=== PATIENT | female | born 1970 | race Caucasian/White ===

== ENCOUNTER 2025-04-11 09:08 | Outpatient (REF) | payer MEDICAID, SELFPAY ==
--- OUTSIDE RECORDS SUMMARY | 2019-06-19 11:56 | XMS_ITS | Continuity of Care Document ---
Author Organization [facility] Address [address] [place] [address] Phone Care Team Providers Care Emergency Dispatch Operator Name Role Phone Ayla Horton Unavailable Unavaila ble Allergies, Adverse Reactions, Alerts Substance Reaction Status Criticality adhesive tape Active No Information HYDROMORPHONE HCL chest pain Active No Informa tion Medications Medication Instructions Dosage Effective Dates (start - stop) Status Comments amlodipine 10 mg tablet take 1 tablet by oral route every day 10 MG - Active amitriptyline 25 mg tablet take 1 tablet by oral route every day at bedtime 25 MG - Active Aspir-81 mg tablet,delayed release take 1 tablet by oral route every day - Active atorvastatin 40 mg tablet take 1 tablet by oral route every day 40 MG - Active clonidine HCl 0.1 mg tablet take 1 tablet by oral route 2 times every day 0.1 MG - Active divalproex ER 500 mg tablet,extended release 24 hr take 1 tablet by oral route every day 500 MG - Active Drizalma Sprinkle 60 mg capsule,delayed release take 1 capsule by oral route every day 60 MG - Active Fish Oil 300 mg-500 mg capsule - Active nitroglycerin 0.[address] 1 tablet by sublingual route at the first sign of an attack; no more than 3 tabs are recommended within a 15 minute period. as needed 0.3 MG - Active omeprazole 40 mg capsule,delayed release take 1 capsule by oral route 2 times every day before a meal 40 MG - Active ropinirole 0.5 mg tablet take 1 tablet by oral route 3 times every day 0.5 MG - Active rosuvastatin 40 mg tablet take 1 tablet by oral route every day 40 MG - Active Premarin 0.625 mg/gram vaginal cream insert (0.5G) by vaginal route 2 times every week 0.5 G - Active Accu-Chek Combo System kit please provide glucometer, test strips and lancets for TID BS checks x 3 months as per formulary - Active FreeStyle Test Strips take by Subcutaneous route test once daily Not Available - Active Humalog KwikPen 100 unit/mL Sub-Q Pen inject by subcutaneous route as per insulin sliding scale protocol - Active before meals and at bed time; small/30 carbs=2units; medium/45 carbs=4units; average/60 carbs=5 units; larger/75 carbs=7units BD Ultra-Fine Olga Pen Watson 32 x 5/32 apply to pen ends and inject insulin as directed once daily for lantus and ac and hs for humalog pens - Active Basaglar KwikPen U-100 Insulin 100 unit/mL (3 mL) subcutaneous inject by subcutaneous route as per insulin protocol 0.00 - Active metformin 1,000 mg tablet take 1 tablet by oral route 2 times every day with morning and evening meals 1000 MG - Active lisinopril 40 mg tablet take 1 tablet by oral route every day 40 MG - Active Problems Condition Type Effective Dates (start - stop) Clini alex Status Comments No Known Problems Procedures Procedure Date PREV VISIT, EST, AGE 40-64 Intraoral-complete Series (bw) 20 Comp Oral Eval New/estab Patient 2019 Oral Hygiene Instruction PREV VISIT, EST, AGE 40-64 OFFICE/OUTPATIENT VISIT, NEW GLYCOSYLATED HEMOGLOBIN TEST OFFICE/OUTPATIENT VISIT, EST OFFICE/OUTPATIENT VISIT, EST OFFICE/OUTPATIENT VISIT, EST OFFICE/OUTPATIENT VISIT, EST ROUTINE VENIPUNCTURE OFFICE/OUTPATIENT VISIT, EST OFFICE/OUTPATIENT VISIT, EST OFFICE/OUTPATIENT VISIT, EST OFFICE/OUTPATIENT VISIT, EST ROUTINE VENIPUNCTURE OFFICE/OUTPATIENT VISIT, EST OFFICE/OUTPATIENT VISIT, EST OFFICE/OUTPATIENT VISIT, EST OFFICE/OUTPATIENT VISIT, EST OFFICE/OUTPATIENT VISIT, EST MEASURE BLOOD OXYGEN LEVEL OFFICE/OUTPATIENT VISIT, EST EST OFFICE VISIT LEVEL 4 EST OFFICE VISIT LEVEL 4 EST OFFICE VISIT LEVEL 4 ROUTINE VENIPUNCTURE OFFICE/OUTPATIENT VISIT, EST ROUTINE VENIPUNCTURE EST OFFICE VISIT LEVEL 4 EST OFFICE VISIT LEVEL 4 EST OFFICE VISIT LEVEL 4 EST OFFICE VISIT LEVEL 4 MEASURE BLOOD OXYGEN LEVEL FLU VACCINE, 3 YRS & >, IM EST OFFICE VISIT LEVEL 4 EST OFFICE VISIT LEVEL 4 EST OFFICE VISIT LEVEL 3 Advance Directives Directive Yes / No Effective Date File Name No Information Encounters Encounter Description Practice Location Reason(s) For Visit Diagnoses Date Provider Providers Copied on Encounter [facility], [address] [place] [address], [id number] , tel:[phone] [facility] No Information 0 Ke [facility] Ayla. [address] [place] [address], [id number], [place]. tel:[phone] PREV VISIT, EST, AGE 40-64 [facility], [address] [place] [address], [id number] , tel:[phone] [facility] annual exam (chief complaint) Encntr for community health program coordinator exam (general) (routine) w/o abn findingsScreening mammogram, encounter forOther problems related to lifestyleBody mass index (BMI) 50.0-59.9, adultAtrophy of vaginaHirsutism 0 [facility] Ayla. [address], [place], [id number], [place]. tel:[phone] [facility], [address], [place], [id number] , [place] tel: [phone] Dental Clinic dental new (chief complaint) Encounter for screening for dental disorder 0 Myron Chang. [address], [place], [id number], [place]. tel:[phone] PREV VISIT, EST, AGE 40-64 [facility], [address] [place] [address], [id number] , [place] tel: [phone] [facility] annual exam (chief complaint) Encntr for community health program coordinator exam (general) (routine) w/o abn findingsEncounter for screening mammogram for malignant tumor of breast- STD screen- STD liefstyle codeMastitis 7 [facility] Ayla. [address], [place], [id number], [place]. tel:[phone] OFFICE/OUTPA TIENT VISIT, NEW [facility], [address] [place] [address], [id number] , [place] tel: [phone] [facility] est care (chief complaint)sp ot on R arm (chief complaint) Pain in right lower legChest pain, unspecifiedGeneral ized anxiety disorderMajor depressive disorder, single episode, unspecifiedEssenti al (primary) hypertensionMixed hyperlipidemiaMorb id (severe) obesity due to excess caloriesDiverticul osis of intestine without abscess with bleedingKeratosisB catrachita mass index (BMI) 50-59.9 , adultFibromyalgiaT ype 2 diabetes mellitus with hyperglycemia Antoine Lynn. [address], [place], [id number], [place]. tel:[phone] OFFICE/OUTPA TIENT VISIT, EST [facility], [address], [place], [id number] , [place] tel:[phone] [facility] chest pain (chief complaint) Chest pain, unspecifiedPilonid al cystHypertension, Benign Apr- 0-201 4 Hemmer Bee. [address], [place], [id number], [place]. OFFICE/OUTPA TIENT VISIT, [facility], [address] [place] [address], [id number] , [place] tel: [phone] [facility] follow up on lab / diagnostic test (chief complaint) Diabetes Mellitus, Adult Onset, UncontrolledHypert ension, BenignObesity, MorbidMixed HyperlipidemiaLumb agoHemorrhoids 9-201 4 Hemmer Bee. [address], [place], [id number], [place]. OFFICE/OUTPA TIENT VISIT, [facility], [address] [place] [address], [id number] , [place] tel: [phone] [facility] back pain (chief complaint) Diabetes Mellitus, Adult Onset, UncontrolledHypert ension, BenignLumbagoMixed HyperlipidemiaObes ity, Morbid Jun- 6-201 4 Hemmer Bee. [address], [place], [id number], [place]. OFFICE/OUTPA TIENT VISIT, [facility], [address] [place] [address], [id number] , [place] tel: [phone] [facility] hemorrhoids (chief complaint) Rectal bleedingHemorrhoid s 4-201 3 Hemmer Bee. [address], [place], [id number], [place]. [facility], [address] [place] [address], [id number] , [place] tel: [phone] [facility] No Information 5-201 3 Hemmer Bee. [address] [place] [address], [id number], [place]. OFFICE/OUTPA TIENT VISIT, [facility], [address] [place] [address], [id number] , [place] tel: [phone] [facility] follow up on lab / diagnostic test (chief complaint) Hypertension, BenignVitamin D deficiencyObesity, MorbidDepression with anxietyMixed HyperlipidemiaDiab etes Mellitus, Adult Onset, Uncontrolled - 3 Hemmer Bee. [address], [place], [id number], [place]. OFFICE/OUTPA TIENT VISIT, [facility], [address] [place] [address], [id number] , [place] tel:[phone] [facility] depression (chief complaint)di abetes (chief complaint) Degeneration of lumbar or lumbosacral intervertebral discDepressionObes ity, MorbidBreast abscessDiabetes Mellitus, Adult Onset, UncontrolledHypert ension, BenignHypersomnia, unspecifiedMixed Hyperlipidemia 3 Hemmer Bee. [address], [place], [id number], [place]. [facility], [address] [place] [address], [id number] , [place] tel:[phone] [facility] Sleep Study (chief complaint)[facility] Records (chief complaint) Hypersomnia, unspecifiedObesity , Morbid 0 3 Visci DO Root. [address], [place], [id number], [place]. tel:[phone] OFFICE/OUTPA TIENT VISIT, [facility], [address] [place] [address], [id number] , [place] tel:[phone] [facility] lower back pain (chief complaint) Degenerative disc disease, lumbarPain in thoracic spineDepressionSui cidal ideation 2 3 Hemmer Bee. [address], [place], [id number], [place]. OFFICE/OUTPA TIENT VISIT, [facility], [address] [place] [address], [id number] , [place] tel:[phone] [facility] back pain (chief complaint) Thoracic spine pain Jan- 5 3 Hemmer Bee. [address], [place], [id number], [place]. OFFICE/OUTPA TIENT VISIT, [facility], [address] [place] [address], [id number] , [place] tel:[phone] [facility] back pain (chief complaint)kn ee pain (chief complaint) Hypertension, BenignMixed HyperlipidemiaDiab etes mellitus without mention of complication,Dizzi nessVitamin D deficiencyAbscess of skinLumbagoPain in joint involving lower leg 3 Sean Gamboa. [address], [place], [id number], [place]. OFFICE/OUTPA TIENT VISIT, [facility], [address], [place], [id number] , [place] tel:[phone] [facility] cyst-lanced and packed (chief complaint) Benign essential hypertensionSebace ous cystMorbid obesityDiabetes mellitus without mention of complication, type II or unspecified type, uncontrolled 1 See Cohen. [address] [place] [address], [id number]. tel:[phone] EST OFFICE VISIT LEVEL 4 [facility], [address] [place] [address], [id number] , [place] [phone] [facility] diabetes (reveiw lab work) (chief complaint)an xiety (chief complaint)hy pertension (chief complaint)wo und (chief complaint) Diabetes mellitus without mention of complication, type II or unspecified type, uncontrolledBenign essential hypertensionMixed hyperlipidemiaGene ralized anxiety disorderBenign essential hypertensionGenera lized anxiety disorderCellulitis and abscess of trunkOther abnormal blood chemistry 1 See Cohen. [address] [place], [address]. tel:[phone] [facility], [address] [place] [address], [id number] , [place] tel:[phone] [facility] labs 5-1011 (chief complaint) ProteinuriaProtein uria 1 See Cohen. [address] [place] [address], [id number]. tel:[phone] EST OFFICE VISIT LEVEL 4 [facility], [address], [place], [id number] , [place] tel: [phone] [facility] sore throat (chief complaint) Diabetes mellitus without mention of complication, type II or unspecified type, uncontrolledBenign essential hypertensionAbdomi nal pain, generalizedAcute pharyngitisMixed hyperlipidemiaAbdo grace pain, generalized 1 See Cohen. [address] [place], [address]. tel:[phone] EST OFFICE VISIT LEVEL 4 [facility], [address] [place] [address], [id number] , [place] tel: [phone] [facility] back pain (chief complaint)DM /HTN (chief complaint) Diabetes mellitus without mention of complication, type II or unspecified type, uncontrolledMyalgi a and myositis, unspecifiedLumbago SciaticaPain in joint involving lower legLumbagoSciatica Pain in joint involving lower legMyalgia and myositis, unspecified 1 See Cohen. [address] [place] [address], [id number]. tel:[phone] EST OFFICE VISIT LEVEL 4 [facility], [address] [place] [address], [id number] , [place] tel:[phone] [facility] cut on heel not healing (chief complaint)re fill on diabetes supplies (chief complaint)co ld symptoms (chief complaint) Diabetes mellitus without mention of complication, type II or unspecified type, uncontrolledBenign essential hypertensionCellul itis and abscess of other specified sitesAcute sinusitis, unspecified 1 See Cohne. [address] [place] [address], [id number]. tel:[phone] EST OFFICE VISIT LEVEL 4 [facility], [address] [place] [address], [id number] , [place] tel: [phone] [facility] abdominal discomfort (chief complaint) Unspecified chest painAbdominal pain, generalizedBenign essential hypertensionAbdomi nal pain, generalizedDiabete s mellitus without mention of complication, type II or unspecified type, uncontrolledUnspec ified chest pain 0 See Cohen. [address] [place], [address]. tel:[phone] EST OFFICE VISIT LEVEL 4 [facility], [address], [place], [id number] , [place] tel:[phone] [facility] lump on leg (chief complaint)hali mp on back (chief complaint) Syncope and collapseDiabetes mellitus without mention of complication, type II or unspecified type, uncontrolledGenera lized anxiety disorderMajor depressive affective disorder, recurrent episode, unspecified degreeMorbid obesityBenign essential hypertensionViral warts, unspecifiedSebaceo us cystSebaceous cystViral warts, unspecifiedDiabete s mellitus without mention of complication, type II or unspecified type, uncontrolledMorbid obesityBenign essential hypertensionSebace ous cyst 0 See Cohen. [address] [place], [address]. tel:[phone] [facility], [address] [place] [address], [id number] , [place] [phone] [facility] No Information 0 Sheeba Villagran. [address], [place], [id number], [place]. tel:[phone] EST OFFICE VISIT LEVEL 4 [facility], [address], [place], [id number] , [place] tel:[phone] [facility] fainting spells (chief complaint) Syncope and collapseDiabetes mellitus without mention of complication, type II or unspecified type, uncontrolledMorbid obesity 0 Fortino Osuna. [address] [place] [address], [id number], [place]. tel:[phone] EST OFFICE VISIT LEVEL 4 [facility], [address] [place] [address], [id number] , [place] [phone] [facility] UTI (chief complaint)di zziness (chief complaint)op en draining sores (chief complaint) Diabetes mellitus without mention of complication, type II or unspecified type, uncontrolledSyncop e and collapseMorbid obesity 0 Sugeybeckie PEDERSEN-Jillian Thao. [address] [place], [address], [place]. tel:[phone] EST OFFICE VISIT LEVEL 3 [facility], [address], [place], [id number] , tel:[phone] [facility] PAP test (chief complaint) Routine gynecological examinationMorbid obesityCandidiasis of vulva and vagina 0 Stibeckie PEDERSEN-C Thao. [address] [place], [address], [place]. tel:[phone] Family History Family Member Type Diagnosis Age At Onset Mother Problem (finding) stroke Mother Problem (finding) hypertension Father Problem (finding) Obesity Brother Problem (finding) attention deficit hyper activity disorder Mother Problem (finding) depression Brother Problem (finding) alcoholism Mother Problem (finding) osteoarthritis Father Problem (finding) alzheimer's disease Brother Problem (finding) Multiple myeloma Mother Problem (finding) diabetes melli tus in first degree relative Father Problem (finding) hypertension Father Problem (finding) diabetes melli tus in first degree relative Father Problem (finding) raised blood lipids Mother Problem (finding) raised blood lipids Payers Payer name Insurance type Covered democrat ID Authoriza tion(s) [place] [employer] 190 [id number] Medicaid [facility] [id number] Social History Type Description Quantity Date Captured Comments Alcohol Use Details Unknown Caffeine Use Details Unknown Tobacco Use Status No Information Smoking Status No Information Sex Female Sexual Orientation Straight or heterosexual Gender Identity Female Chief Complaint And Reason For Visit No Information Reason For Referral Reason For Referral No Information Plan Of Treatment Date Type Action Status Goal Breast exam. Due on 020 due Goal Pneumococcal vaccine. Due on due Goal Hemoglobin A1C. Due on due Goal ECG. Due on due Goal Dental exam. Due on due Goal Diabetes screening. Due on due Goal Foot exam. Due on 0 due Goal Urine Microalbumin. Due on due Goal Tdap. Due on due Goal H&P. Due on due Goal Influenza vaccine. Due on due Goal Depression screening. Due on due Goal Lipid panel. Due on due Goal READING COACH exam. Due on due Goal Dilated eye exam. Due on May due Goal Dietary management education , guidance, and counseling completed Goal Depression screening. Due on due Goal Breast exam. Due on due Goal Hemoglobin A1C. Due on due Goal Dilated eye exam. Due on May due Goal H&P. Due on due Goal Influenza vaccine. Due on due Goal Urinalysis due Goal Pneumococcal vaccine. Due on due Goal ECG. Due on due Goal READING COACH exam. Due on due Goal Lipid panel. Due on due Goal Tdap. Due on due Goal Foot exam. Due on 0 due Goal Dental exam. Due on due Goal Urine Microalbumin. Due on due Goal Diabetes screening. Due on due Goal Pneumococcal vaccine. Due on due Goal Lipid panel. Due on 015 due Goal ECG. Due on due Goal Foot exam. Due on due Goal Influenza vaccine. Due on due Goal Breast exam. Due on 011 due Goal Dilated eye exam. Due on Dec due Goal Urine Microalbumin. Due on due Goal Dental exam. Due on 017 due Goal Urinalysis. Due on 14 due Goal H&P. Due on due Goal Tdap. Due on due Goal Foot exam. Due on 2 due Goal Pneumococcal vaccine. Due on due Goal Urinalysis. Due on 14 due Goal READING COACH exam. Due on due Goal ECG. Due on due Goal Breast exam. Due on 011 due Goal Influenza vaccine. Due on due Goal Lipid panel. Due on 015 due Goal Dental exam. Due on 017 due Goal H&P. Due on due Goal Dilated eye exam. Due on Nov due Goal Urine Microalbumin. Due on due Goal Tdap. Due on due Referral Ordered: Gastroenterology (related to Diverticulosis of intestine without abscess with bleeding) [id number] Ordered: General Surgery. [id number] Ordered: Psychiatry. [id number] Ordered: Physical Therapy (related to Thoracic spine pain) [id number] Referred To: Physical Therapy Ordered: Referral: Physical Therapy. Evaluate and treat. [id number] Ordered: CULTURE THROAT Nephrology. [id number] Ordered: ref form given to client who states will schedule [place] [facility] [place] to Myalgia and myositis, unspecified) [id number] Ordered: Physical Therapy. ordered History Of Present Illness Encounter Date Complaint History Of Prese nt Illness annual exam Currently pregna nt: no. : 3. Parity: Term: 3. Livin. Patient is not contemplating . The patient states she uses hysterectomy for control. Her menses is absent. Negative for dysmenorrhea and menorrhagia. Negative for: breast discharge, breast lump(s), breast pain and breast self exam.Postmenopausal: Age: 35, Type: Partial hystectomy. Negative for Hormone replacement therapy. Menopausal symptoms negative for: insomnia, night sweats and vaginal dryness. Menopausal symptoms positive for: hot flashes. The patient does not use tobacco. She does drink alcohol. Additional information: Patient is here for annual exam. has a long history of PCOS and hirsutism. [facility] 2 weeks. Has not had work up for abnormal hair growth for a long time. May have had it when she was younger. C/O stabbing pain in outer left breast, but no lump noted. C/O stabbing pain in vaginal area. Is sexually active.. dental new dental new, esta b dental care annual exam Currently pregna nt: no. : 3. Parity: Term: 3. Livin. The patient states she uses hysterectomy for control. Her menses is absent.Postmenopausal: Age: 35, Type: Partial hystectomy. Negative for Hormone replacement therapy. Tobacco cessation has been discussed. She does drink alcohol. Additional information: Patient is here for annual exam. States she believes she has a bug bite that turned into an infection. SHe was seen in the ER 2 days ago and was given Bactrim, but redness has continued to spread. States the area is tender and warm to touch. Has a mammogram scheduled for this Wednesday. States she has had a hysterectomy, but has her ovaries. Denies any other READING COACH problems.. est care Patient here to establish care, she was seeing Dr. Gloria Hernandez. States she just doesn't like her anymore. She is also seeing Dr. Cerrato for her mental health, she thinks she has an appt next month. Patient states she needs an overall well check, she has not been taking care of herself. She does not remember to take her medications on a regular basis. States she has a lot of health issues. 13.2-Byron QUACH spot on R arm Patient has a sp ot on her R arm she would like looked at. -Byron QUACH Functional Status Date Functional Assessmen t No Information Instructions Date Instruction Additional Infor kenrick Discussed hirsutism in detail and patient has appt in 2 weeks with PCP. Encouraged her to have testosterone levels drawn and evaluated. Related to Hirsutism Discussed atrophic v agina and probable cause of vaginal discomfort especially with IC. Rx for premarin vaginal ream sent to pharmacy. Related to Atrophy of vagina Encouraged monthly B SE. Recommend calcium 1000mg QD. Encouraged good dietary intake and exercise. Laboratory specimens sent to lab. Patient to call in 2 weeks if desires results.currently on medications for insulin resistance and diabetes. Will follow up with CP for hirsutism Related to Encntr for community health program coordinator exam (general) (routine) w/o abn findings Giving encouragement to exercise Related to Body mass index (BMI) 50.0-59.9, adult Dietary management e ducation, guidance, and counseling Related to Body mass index (BMI) 50.0-59.9, adult Discussed erythema o f right breast and marked the line of infection. ENcouraged patient to report back to ER as she may need IV antibiotic. THere is no lump or abscess under the erythema. site is warm to touch and tender. Encouraged to continue Bactrim as Rx. Will obtain ER report Related to Mastitis Encouraged monthly B SE. Recommend calcium 1000mg QD. Encouraged good dietary intake and exercise. Laboratory specimens sent to lab. Patient to call in 2 weeks if desires results. Related to Encntr for community health program coordinator exam (general) (routine) w/o abn findings Cervical cultures se nt to lab. Patient to call in 1 week for results Related to - STD screen Go to ER if symptoms persist or worsen Call if symptoms persist Walking program recommended Review medications Review medication side effects Order labs/studies Call if symptoms persist Walking program recommended Order consults Prescribe medications Renew medications Review medications Review medication side effects Order labs/studies Go to ER if symptoms persist or worsen Walking program recommended Review medication side effects Order labs/studies Go to ER if symptoms persist or worsen Call if symptoms persist Prescribe medications Review medications Call if symptoms persist Walking program recommended Order consults Prescribe medications Review medications Review medication side effects Order labs/studies Go to ER if symptoms persist or worsen Prescribe medications Review medications Review medication side effects Go to ER if symptoms persist or worsen Call if symptoms persist Walking program recommended Prescribe medications Review medications Review medication side effects Order labs/studies Go to ER if symptoms persist or worsen Call if symptoms persist Walking program recommended Order consults Prescribe medications Renew medications Review medications Review medication side effects Go to ER if symptoms persist or worsen Call if symptoms persist Order labs/studies Walking program recommended Assessments Type Assessment Date No Information Goals Health Concern Goal Type Priority Status Date Diabetes Self Management: Patient needs education to manage diabetes. Patient will state factors necessary to manage diabetes. Patient Goal Continued Patient Care Teams Name Effective Dates (start - stop) Status Members No Information
--- OUTSIDE RECORDS SUMMARY | 2024-02-15 06:00 | XMS_ITS ---
Author Organization [facility] Address [address] [place] [address] Care Team Providers Care Decorator Hand Name Role Phone Joe Mcgrath Primary Care Provider [phone] Taniya Flores Unavailable [phone] REASON FOR VISIT FILLINGS Social History Sex Assigned At : Social History Observation Description Sex Assigned At Female Encounters Encounter Location Date Provider Diagnosis [facility] [address] [place] [address] 02/15/2024 Taniya Flores Plan Of Treatment No Information Progress Notes * WILLIAM LIN LDOB:[birth year] (54 yo F)Acc No.[id number]:02/15/2024 Patient:?WILLIAM LIN :?Taniya FloresDOB:1970???Age:53 Y???Sex: FemaleDate:02/15/2024hone:[phone]:[address], [id number]:Joe Mcgrath Subjective: * Chief Complaints: * F ILLINGS * Electronic signature of Taniya Flores DMD on 04/11/2025 at 09:17 AM ESTSign off status: Pending * Provider: Shruti Flores Date: 1 Generated for Printing/Faxing/eTransmitting on:?04/11/2025 09:17 AM EST
--- OUTSIDE RECORDS SUMMARY | 2024-08-08 06:00 | XMS_ITS ---
Author Organization [facility] Address [address] [place] [address] Care Team Providers Care Landmen Name Role Phone Joe Mcgrath Primary Care Provider REASON FOR VISIT 1 month f/u Social History Sex Assigned At : Social History Observation Description Sex Assigned At Female Encounters Encounter Location Date Provider Diagnosis [facility] [address] [place] [address] 08/08/2024 Joe Mcgrath Plan Of Treatment No Information Progress Notes * WILLIAM LIN LDOB:[birth year] (54 yo F)Acc No.[id number]:08/08/2024 Progress Notes Patient: WILLIAM CALLEJAS Provider:?Joe McgrathDOB:1970???Age:54 Y???Sex:FemaleDate:08/08/2024Phone:[phone]:[address] [id number] Subjective: * Chief Complaints: * 1 month f/u Billing Information: * Procedure Codes: * Electronic signature of Joe Mcgrath DO on 04/11/2025 at 09:17 AM ESTSign off status: Pending * Appointment Provider: Shruti Mcgrath Date: 0 08/08/2024 Generated for Printing/Faxing/eTransmitting on:?04/11/2025 09:17 AM EST
--- OUTSIDE RECORDS SUMMARY | 2024-10-02 06:30 | XMS_ITS ---
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 Name Role Phone Joe Mcgrath Primary Care Provider Nilsa Benton [phone] REASON FOR VISIT 3 month f/u Social History Sex Assigned At : Social History Observation Description Sex Assigned At Female Encounters Encounter Location Date Provider Diagnosis [facility] [address] [place] [address] 10/02/2024 Nilsa Benton Plan Of Treatment No Information Progress Notes * WILLIAM LIN LDOB:[birth year] (54 yo F)Acc No.[id number]:10/02/2024 Behavioral [facility] Patient: Avel JOHNSON WILLIAM [place]lecillo :?Nilsa BentonDOB:1970???Age:54 Y???Sex:Female Date:10/02/2024Phone:[phone]:[address] [id number]:Joe Mcgrath Subjective: * Chief Complaints: * 3 month f/u * Electronic signature of JU Méndez on 04/11/2025 at 09:16 AM ESTSign off status: Pending * Provider: Jillian Benton Date: 0 10/02/2024 Generated for Printing/Faxing/eTransmitting on:?04/11/2025 09:16 AM EST
--- OUTSIDE RECORDS SUMMARY | 2025-04-11 09:17 | XMS_ITS | Patient Health Record ---
Author Organization [facility] Address [address] [place] [address] Care Team Providers Care Blender / Cook Name Role Phone Joe Mcgrath Primary Care Provider [phone] Nilsa Benton Unavailable [phone] Gemma Martinez Unavailable [phone] Butch Ireland Unavailable [phone] Allergies Allergen (clinical drug ingredient) Drug/Non Drug Allergy documented on EMR Reaction Allergy Type Onset Date Status hydromorphone Dilaudid vomiting Drug Allergy ActiveAdhesiverashAllergyActivemorphineMorphineanaphylaxisDrug AllergyActive Results Component Value Reference Range Flag Notes Thyroid Stim Hormone w/Rflx Reviewed date:06/15/2024 04:48:12 PM Interpretation: Performing Lab: Notes/Report: Reason for Exam Palpitations;Subclinical hypothyroidism Thyroid Stim Hormone w/Rflx 2.30 0.45-5.33 u[iU]/mL N Lipid Panel Reviewed date:06/15/2024 04:48:12 PM Interpretation: Performing Lab: Notes/Report: Reason for Exam Palpitations;Subclinical kntghcqbqdnysyNrxgxjeppot184111-878 mg/dLN Chol less than 200 mg/dl low risk Chol 201-239 mg/dl borderline risk Chol 240 mg/dl and greater high risk HDL Qsspeyxnufp0566-27 mg/dLN HDL CHOL ATP-III CLASSIFICATION Cardiovascular Risk HDL > or equal to 60 mg/dL LOW HDL < 40 mg/dL HIGH Triglyceride w/Vbwonm9619-604 mg/dLN TRIG ATP III CLASSIFICATION TRIG less than 150 mg/dL Normal TRIG 150-199 mg/dL Borderline high TRIG 200-500 mg/dL High TRIG greater than 500 mg/dL Very high Standard traceable to the Center for Disease Conrtrol and Prevention (CDC) test method. LDL Cholesterol,Cjtutlzwri010-506 mg/dLN LDL ATP III CLASSIFICATION LDL less than 100 mg/dL Optimal LDL 100-129 mg/dL Near or above optimal LDL 130-159 mg/dL Borderline high LDL 160-189 mg/dL High LDL greater than 189 mg/dL Very high VLDL HXVGTHZTTFP73Fzng/HDL Ratio3.2<5.0Comprehensive Metabolic Panel Reviewed date:06/15/2024 04:48:12 PM Interpretation: Performing Lab:, [facility], [address] [place] [address] Notes/Report: Reason for Exam Palpitations;Subclinical ksrzkfqgzugxlkArtmmey72269-922 mg/dLH Random Glucose Reference Range is dependent on time and content of last meal. Glucose of more than 200 mg/dL in a nonstressed, ambulatory subject supports the diagnosis of Diabetes Mellitus. ADA recommended reference range Blood Urea Zlkhsrev989-35 mg/dLNCreatinine0.910.60-1.20 mg/eQLTqjxgt322153-454 mmol/LNPotassium4.23.5-5.1 mmol/OHTxegpwpt78699-745 mmol/LHCarbon Yuokipi16.7 21.0-31.0 mmol/LNCalcium9.48.6-10.3 mg/dLNTotal Protein6.96.4-8.9 g/dLNAlbumin Level4.43.5-5.7 g/dLNGlobulin2.5Albumin/Globulin Ratio1.8Bilirubin,Total0.40.3- 1.0 mg/dLNAspartate Amino Fimmjlkndll2500-52 U/LNAlanine Jzwuudaemqrelufd187-05 U/LNAlkaline Smisfqikhdl0920-663 U/LNEstimated GFR>60.0Anion Gap12.56.0-15.0 meq/LNNM belen perf SPECT rest & str Reviewed date:07/14/2024 03:47:11 PM Interpretation: Performing Lab: Notes/Report: [facility] Main [place] [address] [place] [address] Nuclear Medicine Report Signed Patient: Sharmaine Barkley MR#: [id number] : 1970 Acct:[id number] Age/Sex: 54 / F ADM Date: 07/12/24 Loc: Room: Type: [facility] Attending Dr: Joe Lawson DO Copies to: MD Joe Clayton DO Ordering Provider: Joe Lawson DO Date of Service: 07/12/24 NM/NM belen perf SPECT rest str: aerotherscleric heart disease of the coronary artery NUCLEAR MYOCARDIAL PERFUSION DATE OF PROCEDURE: 07/13/24 PROCEDURE: The patient received a stress dose of Lexiscan and was then injected with 29.5 millicuries of Technetium 99M Sestamibi. For rest images the patient was injected with 29.7 millicuries of Technetium 99M Sestamibi. FINDINGS: The raw cine images were reviewed. The post stress and rest perfusion images were reviewed as well as the computer quantification. There is a fixed inferior wall defect due to increased gut uptake. No ischemia On the gated portion of the study, there was uniform thickening with an overall ejection fraction calculated at 63%. TID score was within normal limits. CONCLUSION: 1. There is a fixed inferior wall defect due to increased gut uptake. No ischemia 2. Left ventricular function was preserved. Impression dictated by: Pam Carcamo M.D.07/13/2024 3:25 PM Dictation Location: [place] [address] Transcribed By: [facility] 07/13/24 1525 Dictated By: Pam Carcamo MD 07/13/24 1520 Signed By: <Electronically signed by Pam Carcamo MD in OV> 07/13/24 1525 Reason For Referral No Information Medications Medication SIG (Take, Route, Frequency, Duration) Notes Start Date End Date Status Clopidogrel Bisulfate 75 MG Tablet Take 1 tablet by mouth once daily; Duration: 30 ActiveRosuvastatin Calcium 40 MG Tablet1 tablet Orally Once a day; Duration: 30 daysActiveJardiance 25 MG Tablet1 tablet Orally Once a dayActivemetFORMIN HCl 500 MG Tablet2 ttablet with a meal Orally twice dailyActiveHumaLOG KwikPen 100 UNIT/ML Solution Pen-injectoras directed Subcutaneous1:3 carb ratio. Takes 30 units total/day on averageActiveTresiba FlexTouch 100 UNIT/ML Solution Pen-bwcibwqg84 units Subcutaneous once a dayActiveOzempic (0.25 or 0.5 MG/DOSE) 2 MG/3ML Solution Pen-injectorSubcutaneous; Duration: 28 DaysActiveMagnesium Oxide 400 MG TabletTake 1 tablet by mouth once daily; Duration: 30ActiveAspirin 81 MG Capsule1 tablet Orally Once a day; Duration: 30 daysActivePotassium Chloride ER 20 MEQ Tablet Extended ReleaseTake 1 tablet by mouth once daily with food Orally Once a day; Duration: 90 daysActiveamLODIPine Besylate 10 MG Tablet Take 1 tablet by mouth once daily Orally Once a day; Duration: 30 daysActive hydroCHLOROthiazide 25 MG TabletTake 1 capsule by mouth once daily in the morning Orally Once a day; Duration: 30 daysActiveARIPiprazole 10 MG Tablet1 tablet Orally Once a dayActiveLisinopril 20 MG Tablet1 tablet Orally Once a day; Duration: 30 daysActiveDULoxetine HCl 60 MG Capsule Delayed Release Particles Take 1 capsule by mouth once dailyActiveGabapentin 300 MG CapsuleTake 1 capsule by mouth twice daily; Duration: 30Not-Taking/PRN Immunizations Vaccine Route Administration Date Status Comme nts Influenza 3+ PRIVATE IM Intramuscular 07/17/2021 Administe red MODERNAIM Wkixuxsfamdby20/20/2021dministered Covid vaccine (Moderna) #2 administered @ [facility] on 08/12/2020. Lot #:[id number] Exp:09/10/2020 MODERNAIM Kjxvuurbxgchz29/27/2021dministered Covid-19 vaccine (Moderna) #2 administered @ [facility]. Lot #:[id number] Exp:02/18/2021 MODERNAIM Zluemdicvccwm50/03/2022dministeredSHINGRIX VIAL KITIM Intramuscular 09/16/2021dminist[facility] [place] 2[place] #:[id number] EXP:10/08/2022 TETANUSIM Ygrmqvhtdddmm90/03/2022dministered Social History Tobacco Use: Social History Observation Description Date Details (start date - stop date) Never Smoker NA - NA Sex Assigned At : Social History Observation Description Sex Assigned At Female Social History Social DeterminantsSocial InfoQuestionAnswerNotesPRAPAREDate Completed/Updated: 06/01/2024What is your current housing situation?I have housingAre you worried about losing your housing?NoWhat is the highest level of school that you have finished?More than high schoolWhat is your current work situation?Unemployed and seeking workIn the past year, have you or any family members you live with been unable to get any of the following when it was really needed? Check all that applyI do not have problems meeting my needsHas lack of transportation kept you from medical appointments, meetings, work or from getting things needed for daily living?NoHow often do you see or talk to people that you care about and feel close to? (For example: talkingto friends on the phone, visiting friends or family, going to episcopalian or club meetings)More than 5 times a weekHow stressed are you? Stress is when someone feels tense, nervous, anxious, or cant sleep at night because their mind is troubledA little bitIn the past year have you spent more than 2 nights in a row in a intermediate, skilled nursing, jail center, orjuvenile correctional facility?NoAre you a refugee?NoWhat country are you from?[place]Do you feel physically and emotionally safe where you currently live?YesIn the past year, have you been afraid of your partner or ex-partner?NoPRAPARE Score:4GeneralSocial InfoQuestionAnswerNotesTransition of Care:ER/UC/hospital since last office visit?Yes, report on fileSpecialist seen since last office visit?NoSubstance abuse/mental health issues of patient/familyPatient -Denies Ability to understand healthcare/treatmentPatient:GoodSocial/Support Concerns: Patient:NoBehaviors affecting healthPoor/Risky Behaviors:Denies-Communication Barrier:Language Barrier?:NoDrug/Alcohol:Social InfoQuestionAnswerNotesAUDIT-C (Standard)Did you have a drink containing alcohol in the past year?NoPoints0 InterpretationNegativeTobacco Use:Social InfoQuestionAnswerNotesTobacco Control (Standard)Tobacco use:NonsmokerAdditional DetailsCategorySocial InfoOptions DetailsPsychosocial HistoryCultural/Ethniccluutter home dogs 6 ppl trailer crowded all have mental health admis lifestyle family dysfuntion anger xhilren out of homeStrengths/Weaknesses from another hometown pain in neck selfish needy 24 years has though of leaving would not end well son promise not to leave three children 23 schizofeffect 17 4.0 lives with stable family 20 daughter living at [place] round got her out of house emoitoanl abuse 23 his gf her daughter her son spouse pt not one person on disability but no of them working successfully continue cycle of homelessness, mental health, and 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 keep 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 working 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 at hovelstay Problems Problem Type SNOMED Code ICD Code Onset Dates Problem Status W/U Status Risk Notes Problem Type 2 diabetes mellitus with other specified complication (E11.69)Active confirmedProblemMorbid obesity (disorder) (205349426)Morbid (severe) obesity due to excess calories (E66.01)ActiveconfirmedProblemHyperlipidemia (15005401) Hyperlipidemia, unspecified (E78.5)ActiveconfirmedProblemHypomagnesemia (450322433)Hypomagnesemia (E83.42)ActiveconfirmedProblemSchizoaffective disorder, bipolar type (75590757)Schizoaffective Disorder, Bipolar type (F25.0) ActiveconfirmedProblemSchizoaffective disorder, depressive type (94603727) Schizoaffective Disorder, Depressive type (F25.1)ActiveconfirmedProblemChronic pain (74526242)Other chronic pain (G89.29)ActiveconfirmedProblemSciatica (25219424)Lumbago with sciatica, right side (M54.41)ActiveconfirmedProblem Sciatica (08819808)Lumbago with sciatica, left side (M54.42)Activeconfirmed ProblemFibromyalgia (865862299)Fibromyalgia (M79.7)ActiveconfirmedProblemAnxiety (21893593)Anxiety (F41.9)ActiveconfirmedProblemEssential hypertension (33790508)Essential hypertension (I10)ActiveconfirmedProblemMorbid obesity (572368942)Morbid obesity (E66.01)ActiveconfirmedProblemDiabetes mellitus (66390125)Diabetes mellitus (E11.9)ActiveconfirmedProblemNeuropathy (551818565) Neuropathy (G62.9)ActiveconfirmedProblemRestless legs syndrome (36527882) Restless leg syndrome (G25.81)ActiveconfirmedProblemBody mass index 40+ - severely obese (758852154)BMI 45.0-49.9, adult (Z68.42)ActiveconfirmedProblem Carpal tunnel syndrome of right wrist (298962931785282)Carpal tunnel syndrome of right wrist (G56.01)ActiveconfirmedProblemDiabetic neuropathy (939608571) Diabetic neuropathy (E11.40)ActiveconfirmedProblemPrimary hypertension (66938002)Primary hypertension (I10)ActiveconfirmedProblemGastroesophageal reflux disease without esophagitis (964680068)Gastroesophageal reflux disease without esophagitis (K21.9)ActiveconfirmedProblemRecurrent falls (210609762) Frequent falls (R29.6)ActiveconfirmedProblemInsomnia (990862552)Insomnia, unspecified type (G47.00)ActiveconfirmedProblemBody mass index 40+ - severely obese (731195414)BMI 50.0-59.9, adult (Z68.43)ActiveconfirmedProblemBorderline personality disorder (04316214)Borderline personality disorder in adult (F60.3) ActiveconfirmedProblemTransient ischemic attack (173167608)TIA (transient ischemic attack) (G45.9)ActiveconfirmedProblemStable angina (444098492)Stable angina (I20.8)ActiveconfirmedProblemIrritable bowel syndrome (24060412)Irritable bowel syndrome with both constipation and diarrhea (K58.2)Activeconfirmed ProblemSciatica (73306552)Acute bilateral low back pain with sciatica, sciatica laterality unspecified (M54.40)ActiveconfirmedProblemLesion of ulnar nerve (253717406)Irritation of left ulnar nerve (G56.22)ActiveconfirmedProblemHistory of excision of intestinal structure (821037980)History of colon resection (Z90.49)ActiveconfirmedProblemBody mass index 40+ - morbidly obese (228106295) Adult BMI 50.0-59.9 kg/sq m (Z68.43)ActiveconfirmedProblemBody mass index 40+ - morbidly obese (118815051)Body mass index [BMI] 50.0-59.9, adult (Z68.43)Active confirmedProblemMixed bipolar affective disorder, moderate (100425212)Bipolar mixed affective disorder, moderate (F31.62)ActiveconfirmedProblemSubclinical hypothyroidism (65691318)Subclinical hypothyroidism (E03.8)Activeconfirmed ProblemAtherosclerotic heart disease of galena coronary artery without angina pectoris (861111721170200)Coronary artery disease involving galena heart, unspecified vessel or lesion type, unspecified whether angina present (I25.10) ActiveconfirmedProblemParaumbilical hernia (41891286)Paraumbilical hernia (K42.9)Activeconfirmed Vital Signs Heart Rate 87 /min 08/15/2024 Prokpwjtqsv17.0 degrees Hzyzyxnfgo21/01/2025Respiratory Rate20 /min08/15/2024 Irtckghv63 %08/15/2024lood pressure wehoqrpop55 mm Hg08/15/20244729Pvxfeq9so 7in in 08/15/2024lood pressure mm Hg08/15/20246266Mftqym334 lbs08/15/2024MI 46.67 kg/m208/15/2024 Encounters Encounter Location Date Provider Diagnosis [facility] [address] [place] [address] 07/14/2024 [facility] [place] [address] [place] [address] [place] [address]/ Nilsa CoxSchizoaffective Disorder, Depressive type F25.[address] [facility] [place] [address] Gemma zzzMasonLumbar back pain M54.50[facility] [place] [address]/16/2025Stanton VincentPalpitations R00.2 and Subclinical hyp[address] E03.8[facility] [place] [address]/07/2024Josilyn ClarkHyperlipidemia, unspecified E78.5 ; Coronary artery disease involving galena heart, unspecified vessel or lesion type, unspecified whether angina present I25.10 and Stable angina I20.8[place] [address] [place] [address]/10/2024Josilyn ClarkEssential hypertension I10 and Influenza J11.1 Assessments Encounter Date Diagnosis (ICD Code) Assessment Notes Treatment Notes Treatment Clinical Notes Section Notes 07/04/2024 Schizoaffective Disorder, Depres sive type (ICD-10 - F25.1) Recommended treatment for Schizoaffective disorder includes FDA approved and OFF label medications:second generation antipsychotics and mood stabilizers. Discussed life threatening side effect of Lamotrigine. Pt is to monitor for new skin rashes or sensation of a sunburn or itchiness or redness, mouth sores or sores in mucus membranes, and call provider immediately and or go to ER, and stop the medication. Second generation antipsychotic medications can cause headache, drowsiness, agitation, dizziness, nausea, or extrapyramidal symptoms such as tremors, muscle spasms, slowness of movement orjerking of muscles. The patient verbalizes understanding with all questions answered thoroughly and is in agreement with treatment plan. Continue current treatment. Call for problems . GOALS: . Maintain medication regimen _Improve mood stability _Improve anxiety control _Improve social and interpersonal functioning Patient/Guardian will call sooner if symptoms worsen. Patient understands to go to ER if needed if symptoms become severe. Crisis Intervention plan was discussed and agreed upon. Patient/Guardian will call 911 in case of emergency. Emergency contact information was provided to the patient/guardian. follow up 3 months Pharmacological management: . Alternative medication plans were discussed with the patient/guardian. All relevant side effects and potential adverse effects were discussed with the patient/guardian. Standard cautions and potential benefits were discussed. Patient/Guardian consented to the start/continuation of the treatment. 5Anxiety (ICD-10 - F41.9)08/15/2024Lumbar back pain (ICD-10 - M54.50) Patient with acute on chronic low lumbar pain with left sided sciatica. She was treated in ER with toradol and NSAIDs with minimal relief. She was seeing Dr. Ortega for pain mgmt and stopped having relief from injections. MRI on 07/20/24 showing: Multilevel postsurgical and degenerative changes notably L3-4 with severe canal and left-sided neural from narrowing of spinal due to posterior element hypertrophic changes and extruded disc material within left subarticular zone. . Appointment with neurosurgery on 08/17/24. Denies saddle anesthesia, bowel/bladder changes, or weakness. She does have somereported paresthesias. Discussed treatment with steroids. She states diabetes is well controlled but in past has had significant glucose elevations with steroids and for this we will hold off. Will send in 5 days of pain medication. Risks, benefits, side effects disucssed. PDMP checkec. Counseled on return msnglaxaebd13/03/2025 Hyperlipidemia, unspecified (ICD-10 - E78.5)05/19/2024oronary artery disease involving galena heart, unspecified vessel or lesion type, unspecified whether angina present (ICD-10 - I25.10)06/01/2024Palpitations (ICD-10 - R00.2)For her history of palpitations, transtelephonic monitor is currently on the patient. This will be a 2-week study. We will await the results of this study. Patient has a stress test scheduled as wellfor her symptoms. Follow-up with cardiology in July. For subclinical hypothyroidism, due to findings of palpitations and current monitor study going on, we will not add a variable of Synthroid treatm ent at this time. I will place labs of CMP, lipid panel, and thyroid stimulating hormone with reflex at this time to assess for current values. We will await the results of her TEM. Patient has a follow-up appointment soon for chronic care. Follow-up then.06/01/2024Subclinical hypothyroidism (ICD-10 - E03.8) 06/22/2024Essential hypertension (ICD-10 - I10)06/22/2024Influenza (ICD-10 - J11.1)05/19/2024Stable angina (ICD-10 - I20.8)05/19/2024OtherBody Mass Index: Care Instructions material was publishedPt has still been having episodes of numbness along the right side of her body and associated dizziness. She may be having TIAs from spastic vasoconstriction. Given her hx of stable angina and coronary artery disease, I will order a Lexiscan stress test to rule out any cardiac causes for her symptoms. She does follow cardiology but does not see them for another 5 months so I will order it for now. I will also decrease her ASA dosage and add Plavix in order to minimize her risk of stroke. I willdiscuss the results with her at her next follow up appointment.06/01/2024OtherBody Mass Index: Care Instructions material was iyndksfkp94/06/2025OtherPt is doing better after starting Tamiflu. She is still experiencing a cough which is exacerbating her chronic back pain. I will send in Jonathon Shepard to help with managing her cough. I encouraged her to finish the Tamiflu. I also encouraged her to reschedule the Lexiscan when she is feeling better. We will review the Lexiscan results at her next appointment. I also went over her recent lab resu lts with her, which are attached to this note. Pt voices understanding and agrees to the plan. Plan Of Treatment No Information Insurance Providers Payer Name Payer Address Payer Phone Subscriber Number Group Number Insured Name Patient Relationship to Insured Coverage Start Date Coverage End Date [employer] [place] Medicaid [address] [place] [address] [id number] Jean-Pierre BARKLEY - patient is the gzlysrt1806/17/2022Wrjavy Murdock [address] [place] [id number], JENNIFER Self - patient is the yjizaeb5506/17/2022z[employer]-termed 06/16/22[address] [place] [id number], JENNIFERSelf - patient is the [id number] CFC after [employer]termed 06/16/22[address] [place] [id number], ROLANDOFERSelf - patient is the [id number] [employer]-termed 06/16/22[address] [place] [id number], JENNIFERSelf - patient is the [id number] MEDICAID CFC after [employer]ter[employer] 06/16/[address] [place] [address] [id number], JENNIFERSelf - patient is the insured z [employer]-termed 06/16/22[address] [place] [id number], JENNIFERSelf - patient is the insured zBH MEDICAID CFC after [employer]ter[employer] 06/16/[address] [place] [id number], ROLANDOFERSelf - patient is the [id number] [address] [place] [id number], ROLANDOFERSelf - patient is the [id number] Wrap [facility] [employer] [place] [id number], JENNIFERSelf - patient is the insured [facility] [employer] [address] [place] [address] [phone], ROLANDOFERSelf - patient is the insured [facility] [address] [place] [address] [phone], JENNIFERSelf - patient is the [id number]/17/2022 BH Wrap [employer] [address] [place] [id number]-Pierre BARKLEY - patient is the /01/2023Dental [employer] DQ Terminated 05/16/24[address] [place] [phone] Jean-Pierre BARKLEY - patient is the ndocadv10/25/2024Dental Wrap CFC [employer] Termed [address] [place] [id number] [id number]-Pierre BARKLEY - patient is the kbctmyv0808/09/2023 Medical (General) History Medical History History ICD Code Hypertension HypercholesterolemiaDManxietyPeripheral artery diseaseDiabetic Retinopathy SoaeztmtgjN65.9Surgical History Surgery Date(Month/Year) lower lumber slipped disk 1982 and 1987 3 c-sectionscolostomy and removalappedectomypartial hysterectomyheart cath Injections mary-Dr. Ortega03/30/2019Injections-back05/18/2019Left inguinal hernia repair2cholecystectomyHospitalization History Reason Date(Month/Year) Chest Pain 10/2019 Chest pain 03/2019 1 [place] 10/2018 chest pain,DM 06/2017 multiple psychiatric stays
== END 2025-04-11 09:09 | disposition home or self-care (01) ==
LOC: LAB 09:08
PROVIDERS: PCP Family Medicine; Visit Provider Nurse Practitioner Family
DX: Z79.2 Long term (current) use of antibiotics (principal)
CPT/HCPCS: 36415; 80202